=== PATIENT | male | born 1995 | race Caucasian/White ===

== ENCOUNTER 2018-01-27 05:33 | Emergency (ER) | payer OTHER ==
--- NOTE | 2018-01-27 06:20 | ED ---
Overdose HPI - General Chief Complaint: Overdose Stated Complaint: Overdose Time Seen by Provider: 01/27/18 05:38 Source: patient, EMS Mode of arrival: EMS Limitations: no limitations - History of Present Illness Initial Comments: This patient is a 22-year-old man brought to be evaluated after having an accident overdose of heroin. Patient states that he had been clean for a few months. Tonight he states he was hanging out around people and it resulted in him having a relapse. Patient reportedly had stopped breathing and bystanders reportedly began performing CPR. He also received Narcan. When I interview the patient he is awake and alert without complaints. Complaint: accidental overdose Onset/Timin -: hour(s) Context: Accidental Overdose: wanted to get high Treatments Prior to Arrival: oxygen, narcan - Related Data Allergies Allergy/AdvReac Type Severity Reaction Status Date / Time No Known Allergies Allergy Verified 01/27/18 05:40 Review of Systems ROS Statement: Those systems with pertinent positive or pertinent negative responses have been documented in the HPI. ROS Other: All systems not noted in ROS Statement are negative. Eyes: Denies: vision change Respiratory: Denies: cough, dyspnea, wheezes Cardiovascular: Denies: chest pain, palpitations, edema Gastrointestinal: Denies: abdominal pain, vomiting, diarrhea Musculoskeletal: Denies: back pain Skin: Denies: rash Neurological: Denies: headache, weakness, numbness, confusion Past Medical History Past Medical History: No Reported History History of Any Multi-Drug Resistant Organisms: None Reported Past Surgical History: No Surgical Hx Reported Past Psychological History: Anxiety Smoking Status: Current every day smoker Past Alcohol Use History: Daily Past Drug Use History: Heroin General Exam Limitations: no limitations General appearance: alert, in no apparent distress Head exam: Present: atraumatic, normocephalic Eye exam: Present: normal appearance, PERRL, EOMI. Absent: scleral icterus ENT exam: Present: normal oropharynx Respiratory exam: Present: normal lung sounds bilaterally. Absent: respiratory distress, wheezes, rales, rhonchi, stridor Cardiovascular Exam: Present: regular rate, normal rhythm, normal heart sounds. Absent: systolic murmur, diastolic murmur, rubs, gallop GI/Abdominal exam: Present: soft. Absent: distended, tenderness, guarding, rebound, mass Extremities exam: Present: normal inspection, normal capillary refill. Absent: pedal edema, calf tenderness Neurological exam: Present: alert, oriented X3. Absent: motor sensory deficit Psychiatric exam: Absent: homicidal ideation, suicidal ideation Skin exam: Present: warm, dry, intact, normal color. Absent: rash Course Vital Signs 01/27/18 01/27/18 01/27/18 05:36 08:04 09:41 Temperature 98.2 F Pulse Rate 97 93 81 Respiratory 16 18 18 Rate Blood Pressure 158/63 121/56 101/52 O2 Sat by Pulse 96 98 98 Oximetry 01/27/18 10:22 Temperature 97.5 F L Pulse Rate 96 Respiratory 18 Rate Blood Pressure 129/69 O2 Sat by Pulse 98 Oximetry Medical Decision Making - Lab Data Result diagrams: 01/27/18 05:38 Lab Results 01/27/18 Range/Units 05:38 Sodium 136 L (137-145) mmol/L Potassium 3.8 (3.5-5.1) mmol/L Chloride 98 (98-107) mmol/L Carbon Dioxide 28 (22-30) mmol/L Anion Gap 10 mmol/L BUN 23 H (9-20) mg/dL Creatinine 1.01 (0.66-1.25) mg/dL Est GFR (CKD-EPI)AfAm >90 (>60 ml/min/1.73 sqM) Est GFR (CKD-EPI)NonAf >90 (>60 ml/min/1.73 sqM) Glucose 199 H (74-99) mg/dL Calcium 8.7 (8.4-10.2) mg/dL Total Bilirubin 0.7 (0.2-1.3) mg/dL AST 62 H (17-59) U/L ALT 96 H (21-72) U/L Alkaline Phosphatase 67 (38-126) U/L Total Protein 6.8 (6.3-8.2) g/dL Albumin 4.3 (3.5-5.0) g/dL Disposition Clinical Impression: Drug overdose Disposition: HOME SELF-CARE Condition: Good Instructions: Opioid Overdose (ED) Is patient prescribed a controlled substance at d/c from ED?: No Referrals: None,Stated [Primary Care Provider] - 1-2 days
[2018-01-27 06:37] LABS: ALT 96 U/L (21-72); AST 62 U/L (17-59); Albumin 4.3 g/dL (3.5-5.0); Alkaline Phosphatase 67 U/L (38-126); Anion Gap 10 mmol/L; Blood Urea Nitrogen 23 mg/dL (9-20); Calcium 8.7 mg/dL (8.4-10.2); Carbon Dioxide 28 mmol/L (22-30); Chloride 98 mmol/L (98-107); Glucose 199 mg/dL (74-99); Potassium 3.8 mmol/L (3.5-5.1); Sodium 136 mmol/L (137-145); Total Bilirubin 0.7 mg/dL (0.2-1.3); Total Protein 6.8 g/dL (6.3-8.2)
--- NOTE | 2018-01-27 06:45 | XR ---
EXAMINATION TYPE: XR chest 2V DATE OF EXAM: 01/27/2018 COMPARISON: NONE HISTORY: Chest pain TECHNIQUE: Frontal and lateral views of the chest are obtained. FINDINGS: Heart and mediastinum are normal. Lungs are clear. Diaphragm is normal. There are chest le ads. Bony thorax appears normal. IMPRESSION: Normal chest
[2018-01-27 08:05] VITALS: RESP 18
[2018-01-27 10:30] VITALS: BP 129/69; PULSE 96; TEMP 97.5
== END 2018-01-27 10:22 | disposition home or self-care (01) ==
LOC: EC 05:33
DX: T40.1X1A Poisoning by heroin, accidental (unintentional), initial encounter (principal); F17.200 Nicotine dependence, unspecified, uncomplicated
CPT/HCPCS: 36415; 71046; 80053; 99284

== ENCOUNTER 2018-12-30 20:06 | Emergency (ER) | payer BC ==
[2018-12-30 20:14] VITALS: RESP 18; TEMP 98.7
[2018-12-30] MEDS ORDERED: SODIUM CHLORIDE 0.9% 1,000 ML IV STA (20:18)
[2018-12-30] MEDS ORDERED: HYDROmorphone 0.5 MG/0.5 ML SYRINGE IVP STA (20:18)
--- NOTE | 2018-12-30 20:18 | ED ---
Lower Extremity Injury HPI - General Chief Complaint: Extremity Injury, Lower Stated Complaint: Fall Time Seen by Provider: 12/30/18 20:13 Source: patient, EMS, RN notes reviewed, old records reviewed Mode of arrival: EMS Limitations: no limitations - History of Present Illness Initial Comments: This is a 23-year-old male the ER for evaluation. Patient presents today with significant right ankle pain. Patient sustained significant right ankle pain, trauma, deformity after fall off ladder. Denies any other injury. Denies any had loss of consciousness. Patient denies any significant medical history denies drugs or alcohol today MD Complaint: ankle injury (Right deformity) -: minutes(s) Injury: Ankle: Right Type of Injury: inversion Severity: severe Severity scale (1-10): 10 Improves With: nothing Worsens With: movement Context: fall, direct blow Associated Symptoms: snap/pop sensation Treatments Prior to Arrival: splint - Related Data Allergies Allergy/AdvReac Type Severity Reaction Status Date / Time No Known Allergies Allergy Verified 01/27/18 05:40 Review of Systems ROS Statement: Those systems with pertinent positive or pertinent negative responses have been documented in the HPI. ROS Other: All systems not noted in ROS Statement are negative. Past Medical History Past Medical History: No Reported History History of Any Multi-Drug Resistant Organisms: None Reported Past Surgical History: No Surgical Hx Reported Past Psychological History: Anxiety Smoking Status: Current every day smoker Past Alcohol Use History: Occasional Past Drug Use History: None Reported General Exam - General Exam Comments Initial Comments: Significant right ankle inversion deformity Limitations: no limitations General appearance: alert, in no apparent distress Head exam: Present: atraumatic, normocephalic, normal inspection Eye exam: Present: normal appearance, PERRL, EOMI. Absent: scleral icterus, conjunctival injection, periorbital swelling ENT exam: Present: normal exam, mucous membranes moist Neck exam: Present: normal inspection. Absent: tenderness, meningismus, lymphadenopathy Respiratory exam: Present: normal lung sounds bilaterally. Absent: respiratory distress, wheezes, rales, rhonchi, stridor Cardiovascular Exam: Present: regular rate, normal rhythm, normal heart sounds. Absent: systolic murmur, diastolic murmur, rubs, gallop, clicks GI/Abdominal exam: Present: soft, normal bowel sounds. Absent: distended, tenderness, guarding, rebound, rigid Extremities exam: Present: normal inspection, full ROM, normal capillary refill. Absent: tenderness, pedal edema, joint swelling, calf tenderness Back exam: Present: normal inspection Neurological exam: Present: alert, oriented X3, CN II-XII intact Psychiatric exam: Present: normal affect, normal mood Skin exam: Present: warm, dry, intact, normal color. Absent: rash Course Vital Signs 12/30/18 20:09 Temperature 98.7 F Pulse Rate 76 Respiratory 18 Rate Blood Pressure 137/91 O2 Sat by Pulse 100 Oximetry - Reevaluation(s) Reevaluation #1: 12/30/18 21:10 Medical records reviewed Reevaluation #2: 12/30/18 21:10 Ankle is splinted, after being reduced. Pain is well-controlled Reevaluation #3: 12/30/18 21:11 Patient is currently awake and alert talking and acting appropriately Procedures - Orthopedic Joint Reduction Joint #1 Consent Obtained: verbal consent Side: right Joint Reduction Location: ankle Analgesia: procedural sedation Technique Used: traction/counter-traction Post-Reduction Neuro Exam: intact Post Reduction X-Ray Obtained: Yes Post Reduction X-Ray Results: reduced Splint Applied: Yes Patient Tolerated Procedure: well Medical Decision Making - Medical Decision Making 23 male the ER for evaluation of right ankle dislocation. Fall off ladder. No other injury. Ankle is reduced in the ER, splinted. Patient can be discharged home encourage no weightbearing - Radiology Data Radiology results: report reviewed (X-ray ankle shows positive right ankle dislocation or fracture seen), image reviewed Disposition Clinical Impression: Dislocation of right ankle joint Disposition: HOME SELF-CARE Condition: Good Instructions (If sedation given, give patient instructions): Ankle Dislocation (ED), Moderate Sedation (ED) Is patient prescribed a controlled substance at d/c from ED?: No Referrals: None,Stated [Primary Care Provider] - 1-2 days
[2018-12-30] MEDS ORDERED: ceFAZolin IN SWFI 2 GM/20 ML SYRINGE IVP STA (20:20)
--- NOTE | 2018-12-30 20:44 | XR ---
EXAMINATION TYPE: XR ankle limited RT DATE OF EXAM: 12/30/2018 COMPARISON: NONE HISTORY: Pain. Fall. TECHNIQUE: 2 views FINDINGS: There is a medial dislocation of the talus. I see no fracture. Distal tibia and fibula appe ar intact. IMPRESSION: Medial dislocation of the ankle joint.
[2018-12-30] MEDS: MIDAZOLAM 1 MG/ML 5 ML VIAL IV STA ×2 (20:57→21:01)
--- NOTE | 2018-12-30 21:38 | XR ---
EXAMINATION TYPE: XR ankle limited RT DATE OF EXAM: 12/30/2018 COMPARISON: Today HISTORY: Post reduction TECHNIQUE: 2 views FINDINGS: 2 views were obtained through the cast. There is anatomic reduction of the dislocated talus . I see no fracture line. IMPRESSION: Anatomic reduction seen.
[2018-12-30 22:25] VITALS: BP 140/68; PULSE 89
== END 2018-12-30 22:25 | disposition home or self-care (01) ==
LOC: EC 20:06
DX: S93.04XA Dislocation of right ankle joint, initial encounter (principal); F17.200 Nicotine dependence, unspecified, uncomplicated; W11.XXXA Fall on and from ladder, initial encounter; Y92.009 Unspecified place in unspecified non-institutional (private) residence as the place of occurrence of the external cause
CPT/HCPCS: 99284; 27840; 96374; 96375; 96361; 73600; J2250; J1170; J0690

== ENCOUNTER → 2019-01-07 | Outpatient (CLI) | payer BC | END | disposition home or self-care (01) | LOC: RADMRIMAIN 18:54 | PROVIDERS: ATTEND Orthopaedic Surgery | DX: Z53.9 Procedure and treatment not carried out, unspecified reason (principal) ==

== ENCOUNTER → 2019-01-11 | Outpatient (CLI) | payer BC ==
--- NOTE | 2019-01-11 12:32 | XR ---
Orbits for foreign body HISTORY: Preprocedural testing 3 views of the orbits. No radiopaque foreign body. Bone mineralization is normal. Orbits are intact. Paranasal sinuses are w ell aerated. IMPRESSION: No radiographic foreign body evident within the orbits.
== END | disposition home or self-care (01) ==
LOC: RADXRMAIN 10:55
PROVIDERS: ATTEND Orthopaedic Surgery
DX: Z01.818 Encounter for other preprocedural examination (principal)
CPT/HCPCS: 70030

== ENCOUNTER → 2019-01-12 | Outpatient (CLI) | payer BC ==
--- NOTE | 2019-01-17 11:04 | MR ---
MR right ankle without contrast HISTORY: Right ankle pain Multiplanar multisequence imaging through the right ankle Correlation to plain film 01/02/2019 The posterior tibial tendon shows abnormal thickening and abnormal increased internal signal which co uld possibly represent a longitudinal tear, there is surrounding fluid signal. There is millicent disrupt ion of the anterior tibiofibular ligament. There is associated fluid signal present at this level. Shamir ne marrow edema is present in the distal tibia both medially and posteriorly as well as laterally. Shamir ne marrow edema also present within the talus medially as well as in the volar aspects of the third a nd fourth metatarsals, articular cartilage signal thought to be maintained. Some fluid signal present in the soft tissues at the volar aspect of the foot. Findings compatible with bone contusion. Increa sed signal within the musculature of the extensive digitorum longus musculature. Fibers of the deltoi d ligament also disrupted. Calcaneofibular ligament is torn. IMPRESSION: Multiple ligamentous and tendon injuries, bone contusions.
== END | disposition home or self-care (01) ==
LOC: RADMRIMAIN 11:13
PROVIDERS: ATTEND Orthopaedic Surgery
DX: S99.811A Other specified injuries of right ankle, initial encounter (principal); S90.01XA Contusion of right ankle, initial encounter